=== PATIENT | female | born 1995 | race American Indian/Alaskan Native ===

== ENCOUNTER 2017-06-21 16:26 | Emergency (ER) | payer SELFPAY ==
[2017-06-21 18:32] LABS: Basophils % (Auto) 0.3 % (0.0-1.8); Eosinophils % (Auto) 4.1 % (0.0-4.3); Hemoglobin 11.8 gm/dl (10.1-14.3); Mean Corpuscular HGB Conc 35 % (30-34); Mean Corpuscular Hemoglobin 33 pg (28-32); Mean Corpuscular Volume 94 fl (79-97); Platelet Count 297 K/mm3 (140-440); Red Blood Count 3.63 M/mm3 (3.65-5.03); Red Cell Distribution Width 12.5 % (13.2-15.2); White Blood Count 7.3 K/mm3 (4.5-11.0)
[2017-06-21 18:59] LABS: Bilirubin,Urine NEG (Negative); Blood,Urine MOD (Negative); Ketones,Urine NEG (Negative); Leukocyte Esterase,Urine LG (Negative); Mucus,Urine 3+ /HPF; Nitrite,Urine NEG (Negative)
--- NOTE | 2017-06-22 00:12 | Ultrasound Report ---
FINAL REPORT PROCEDURE: US OB \T\gt; = 14 WEEKS FETUS TECHNIQUE: Real-time limited sonographic examination was performed for evaluation of size, position, heartbeat, fluid volume for each fetus with image documentation (1 or more fetuses). CPT 57442 HISTORY: vag bleed COMPARISON: No prior studies are available for comparison. FINDINGS: MATERNAL Uterus: Within normal limits . Cervix length: 3.4 cm. Internal Os: Closed . FETUS IUP: Single living intrauterine . Position: Breech. Placental position: Posterior, without previa . Amniotic fluid volume: Normal . Heart rate and rhythm: 153 BPM, Regular . anatomic survey: Not performed on this study. MEASUREMENTS BPD: 4.4 centimeter. HC: 15.9 centimeter. AC: 12.7 centimeter. FL: 2.9 centimeter. Mean Gestational Age (composite criteria): 18 weeks 5 days. Ratio biometry: Normal . Estimated Weight: 247 grams. Interval growth: No prior studies. Estimated Due Date (earliest scan): 11/17/2017. IMPRESSION: 1. Single living intrauterine gestation at approximately 18 weeks 5 days. 2. EDC by US 11/17/2017.
--- NOTE | 2017-06-22 00:56 | Emergency Department Report ---
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 The dysuria is constant. Does not have exacerbating or relieving factors, no right lower quadrant pain, no nausea, vomiting and diarrhea. Reports having a urinary tract infection a few weeks ago , reports having completed a course of Macrobid antibiotics, and reports that her irritative urinary symptoms resolved, and then came back. MD Complaint: vaginal bleeding -: Gradual Location: pelvis Radiation: none Severity: mild Quality: cramping Consistency: intermittent Improves with: none Worsens with: none Associated symptoms: abdominal pain, dysuria. denies: nausea/vomiting, vaginal bleeding, vaginal discharge Vaginal bleeding: light :: Yes OB History - Current : other (patient reports no care) - Related Data Previous Rx's Medication Instructions Recorded Last Taken Type Doxylamine/Pyridoxine HCl 1 each PO QHS PRN #30 tablet. 06/22/17 Unknown Rx [Viki Wyatt 10-10 mg Tablet] Nitrofurantoin [place]/M-Cryst 100 mg PO Q12HR #14 capsule 06/22/17 Unknown Rx [Macrobid CAP] Vit W-Ca,Fe,FA(<1 mg) 1 each PO QDAY #30 tablet 06/22/17 Unknown Rx [ Vitamins] Allergies Allergy/AdvReac Type Severity Reaction Status Date / Time No Known Allergies Allergy Unverified 06/21/17 16:53 ED Review of Systems ROS: Stated complaint: VAGINAL BLEEDING Other details as noted in HPI Constitutional: denies: fever Eyes: denies: vision change ENT: denies: epistaxis Respiratory: denies: cough Cardiovascular: denies: chest pain Gastrointestinal: nausea Genitourinary: dysuria Musculoskeletal: denies: back pain Skin: denies: lesions Neurological: denies: weakness Psychiatric: denies: anxiety ED Past Medical Hx - Past Medical History Previous Medical History?: No - Surgical History Past Surgical History?: No - Medications Home Medications: Home Medications Medication Instructions Recorded Confirmed Last Taken Type Doxylamine/Pyridoxine HCl 1 each PO QHS PRN #30 tablet. 06/22/17 Unknown Rx [Dicmango Wyatt 10-10 mg Tablet] Nitrofurantoin [place]/M-Cryst 100 mg PO Q12HR #14 capsule 06/22/17 Unknown Rx [Macrobid CAP] Vit W-Ca,Fe,FA(<1 mg) 1 each PO QDAY #30 tablet 06/22/17 Unknown Rx [ Vitamins] ED Physical Exam - General Limitations: No Limitations General appearance: alert, in no apparent distress - Head Head exam: Present: atraumatic, normocephalic - Eye Eye exam: Present: normal appearance, EOMI. Absent: nystagmus - ENT ENT exam: Present: normal exam, normal orophraynx, mucous membranes moist, normal external ear exam - Neck Neck exam: Present: normal inspection, full ROM. Absent: tenderness, meningismus - Respiratory Respiratory exam: Present: normal lung sounds bilaterally. Absent: respiratory distress, wheezes, rales, rhonchi, stridor, chest wall tenderness, accessory muscle use, decreased breath sounds, prolonged expiratory - Cardiovascular Cardiovascular Exam: Present: regular rate, normal rhythm, normal heart sounds. Absent: systolic murmur, diastolic murmur, rubs, gallop - GI/Abdominal GI/Abdominal exam: Present: soft, normal bowel sounds, other (there is no right lower quadrant tenderness, the uterus is appropriate for dates.). Absent: distended, tenderness, guarding, rebound, rigid, pulsatile mass - External exam: Present: normal external exam Speculum exam: Present: normal speculum exam Bi-manual exam: Present: normal bi-manual exam, other (escorted by ER heating repair technician Stephanie Martínez). Absent: cervical motion tendernes, adnexal tenderness, adnexal mass - Extremities Exam Extremities exam: Present: normal inspection, full ROM, normal capillary refill. Absent: tenderness, pedal edema, joint swelling, calf tenderness - Back Exam Back exam: Present: normal inspection, full ROM. Absent: tenderness, CVA tenderness (R), CVA tenderness (L), muscle spasm, paraspinal tenderness, vertebral tenderness - Neurological Exam Neurological exam: Present: alert, oriented X3, normal gait, other (Extraocular movements intact. Tongue midline. No facial droop. Facial sensation intact to light touch in the V1, V2, V3 distribution bilaterally. 5 and 5 strength in 4 extremities.. Sensation is intact to light touch in 4 extremities.). Absent : motor sensory deficit - Psychiatric Psychiatric exam: Present: normal affect, normal mood - Skin Skin exam: Present: warm, dry, intact, normal color. Absent: rash ED Course Vital Signs 06/21/17 06/21/17 16:49 22:56 Temperature 98.4 F 98.4 F Pulse Rate 86 87 Respiratory 18 18 Rate Blood Pressure 107/66 102/59 O2 Sat by Pulse 99 100 Oximetry ED Medical Decision Making - Lab Data Result diagrams: 06/21/17 18:17 Vital Signs 06/21/17 06/21/17 16:49 22:56 Temperature 98.4 F 98.4 F Pulse Rate 86 87 Respiratory 18 18 Rate Blood Pressure 107/66 102/59 O2 Sat by Pulse 99 100 Oximetry Lab Results 06/21/17 06/21/17 06/21/17 Range/Units 18:17 18:17 18:17 WBC 7.3 (4.5-11.0) K/mm3 RBC 3.63 L (3.65-5.03) M/mm3 Hgb 11.8 (10.1-14.3) gm/dl Hct 34.0 (30.3-42.9) % MCV 94 (79-97) fl MCH 33 H (28-32) pg MCHC 35 H (30-34) % RDW 12.5 L (13.2-15.2) % Plt Count 297 (140-440) K/mm3 Lymph % (Auto) 22.9 (13.4-35.0) % [place] % (Auto) 5.6 (0.0-7.3) % Eos % (Auto) 4.1 (0.0-4.3) % Baso % (Auto) 0.3 (0.0-1.8) % Lymph # 1.7 (1.2-5.4) K/mm3 [place] # 0.4 (0.0-0.8) K/mm3 Eos # 0.3 (0.0-0.4) K/mm3 Baso # 0.0 (0.0-0.1) K/mm3 Seg Neutrophils % 67.1 (40.0-70.0) % Seg Neutrophils # 4.9 (1.8-7.7) K/mm3 HCG, Qual Positive (Negative) HCG, Quant 84024 H (0-4) mIU/mL Urine Color (Yellow) Urine Turbidity (Clear) Urine pH (5.0-7.0) Ur Specific [place] (1.003-1.030) Urine Protein (Negative) mg/dL Urine Glucose (UA) (Negative) mg/dL Urine Ketones (Negative) mg/dL Urine Blood (Negative) Urine Nitrite (Negative) Urine Bilirubin (Negative) Urine Urobilinogen (<2.0) mg/dL Ur Leukocyte Esterase (Negative) Urine WBC (Auto) (0.0-6.0) /HPF Urine RBC (Auto) (0.0-6.0) /HPF U Epithel Cells (Auto) (0-13.0) /HPF Amorphous Crystals Urine Mucus /HPF Blood Type Antibody Screen 06/21/17 06/21/17 Range/Units 18:17 18:23 WBC (4.5-11.0) K/mm3 RBC (3.65-5.03) M/mm3 Hgb (10.1-14.3) gm/dl Hct (30.3-42.9) % MCV (79-97) fl MCH (28-32) pg MCHC (30-34) % RDW (13.2-15.2) % Plt Count (140-440) K/mm3 Lymph % (Auto) (13.4-35.0) % [place] % (Auto) (0.0-7.3) % Eos % (Auto) (0.0-4.3) % Baso % (Auto) (0.0-1.8) % Lymph # (1.2-5.4) K/mm3 [place] # (0.0-0.8) K/mm3 Eos # (0.0-0.4) K/mm3 Baso # (0.0-0.1) K/mm3 Seg Neutrophils % (40.0-70.0) % Seg Neutrophils # (1.8-7.7) K/mm3 HCG, Qual (Negative) HCG, Quant (0-4) mIU/mL Urine Color Yellow (Yellow) Urine Turbidity Cloudy (Clear) Urine pH 6.0 (5.0-7.0) Ur Specific [place] 1.019 (1.003-1.030) Urine Protein 30 mg/dl (Negative) mg/dL Urine Glucose (UA) Neg (Negative) mg/dL Urine Ketones Neg (Negative) mg/dL Urine Blood Mod (Negative) Urine Nitrite Neg (Negative) Urine Bilirubin Neg (Negative) Urine Urobilinogen 4.0 (<2.0) mg/dL Ur Leukocyte Esterase Lg (Negative) Urine WBC (Auto) 52.0 H (0.0-6.0) /HPF Urine RBC (Auto) 29.0 (0.0-6.0) /HPF U Epithel Cells (Auto) 10.0 (0-13.0) /HPF Amorphous Crystals Few Urine Mucus 3+ /HPF Blood Type O POSITIVE Antibody Screen Negative - Radiology Data Radiology results: report reviewed, image reviewed Obstetrics ultrasound demonstrates intrauterine , no obvious complications or bleeding, approximately 18 weeks by dates. - Medical Decision Making Differential diagnosis: Miscarriage, urinary tract infection, , Assessment and plan: 22-year-old female with irritative urinary symptoms, no obvious blood and gynecologic examination, unremarkable ultrasound, Rh+, most likely with urinary tract infection with possible hemorrhagic cystitis. Patient is afebrile with reassuring vital signs, she will be restarted on Macrobid, and initiated on outpatient vitamins. The importance of adherence to the aforementioned therapies, as well as initiation of care where endorsed to the patient, who verbalized understanding. Critical care attestation.: If time is entered above; I have spent that time in minutes in the direct care of this critically ill patient, excluding procedure time. ED Disposition Clinical Impression: , Dysuria Disposition: [id number] TO HOME OR SELFCARE Is pt being admited?: No Does the pt Need Aspirin: No Condition: Stable Instructions: Urinary Tract Infection in Women (ED) Additional Instructions: Take the medications as directed. Cultures were sent today, results to be available in the next 3-5 days. Have a primary care doctor or research/program director contact the medical records department to obtain culture results. Rest and avoid heavy lifting, and avoid strenuous physical activity. Do not engage in heavy lifting or sexual activity until cleared by an [employer] doctor. It is very important to initiate outpatient care to avoid complications from , including defects, disability, and not following up for care Be dangerous to both herself and to the . Return to the ER right away with no pain, worse pain, migration of pain, fevers, chills, confusion, intractable nausea or vomiting, inability to tolerate liquid feeds. Prescriptions: Doxylamine/Pyridoxine HCl [Viki Wyatt 10-10 mg Tablet] 1 each PO QHS PRN #30 tablet. PRN Reason: Nausea Nitrofurantoin [place]/M-Cryst [Macrobid CAP] 100 mg PO Q12HR #14 capsule Vit W-Ca,Fe,FA(<1 mg) [ Vitamins] 1 each PO QDAY #30 tablet Referrals: PRIMARY CAREM[facility] [Primary Care Provider] - 3-5 Days [facility] [Provider Group] - 3-5 Days [facility] [Provider Group] - 3-5 Days [facility] [Provider Group] - 3-5 Days
[2017-06-22 02:16] VITALS: BP 106/66
== END 2017-06-22 02:16 | disposition home or self-care (01) ==
LOC: ED 16:26
DX: O23.42 Unspecified infection of urinary tract in pregnancy, second trimester (principal); R30.0 Dysuria; Z3A.18 18 weeks gestation of pregnancy
CPT/HCPCS: 36415; 76805; 81001; 84702; 84703; 85025; 86850; 86900; 86901; 87076; 87086; 87186; 87591